=== PATIENT | female | born 1975 | race African-American/Black ===

== ENCOUNTER 2021-06-13 11:45 | Emergency (ER) | payer OTHER ==
[~2021-06-13] VITALS: Ht 165.1 cm; Wt 99.1 kg
[2021-06-13] MEDS ORDERED: LIDOCAINE 2% Multi-Dose 20 ML VIAL. IJ ONE (12:30)
--- NOTE | 2021-06-13 12:59 | PHYS DOC ---
Past Medical History Past Medical History: Hypertension Past Surgical History: No Surgical History Smoking Status: Never Smoker Alcohol Use: None Drug Use: None General Adult EDM: Chief Complaint: LACERATION/AVULSION HPI: HPI: Patient is a 45-year-old female that has a laceration to her left fifth finger. Patient states she was at work and she was cleaning a knife on a tile and the tile slipped and she sliced her left fifth finger. Patient is unsure of when her last tetanus shot was. Review of Systems: Review of Systems: Constitutional: Denies fever or chills. [] Eyes: Denies change in visual acuity. [] HENT: Denies nasal congestion or sore throat. [] Respiratory: Denies cough or shortness of breath. [] Cardiovascular: Denies chest pain or edema. [] GI: Denies abdominal pain, nausea, vomiting, bloody stools or diarrhea. [] : Denies dysuria. [] Musculoskeletal: Denies back pain or joint pain. [] Integument: Laceration to the left fifth finger Neurologic: Denies headache, focal weakness or sensory changes. [] Endocrine: Denies polyuria or polydipsia. [] Lymphatic: Denies swollen glands. [] Psychiatric: Denies depression or anxiety. [] Heart Score: C/O Chest Pain: N/A Risk Factors: Risk Factors: DM, Current or recent (<one month) smoker, HTN, HLP, family history of CAD, obesity. Risk Scores: Score 0 - 3: 2.5% MACE over next 6 weeks - Discharge Home Score 4 - 6: 20.3% MACE over next 6 weeks - Admit for Clinical Observation Score 7 - 10: 72.7% MACE over next 6 weeks - Early Invasive Strategies Current Medications: Current Medications Medications (Trade) Dose Ordered Sig/Rachael Start Time Stop Time Status Last Admin Dose Admin Diphtheria/ Tetanus/Acell Pertussis (Boostrix) 0.5 ml ONCE ONCE 06/13/21 12:30 06/13/21 12:31 UNV Lidocaine HCl (Lidocaine 2% 20ml Vial) 20 ml 1X ONCE 06/13/21 12:30 06/13/21 12:31 UNV Allergies: Allergies: Allergies Coded Allergies Type Severity Reaction Last Updated Verified No Known Drug Allergies 06/13/21 No Physical Exam: PE: Constitutional: Well developed, well nourished, no acute distress, non-toxic appearance. [] HENT: Normocephalic, atraumatic, bilateral external ears normal, oropharynx moist, no oral exudates, nose normal. [] Eyes: PERRLA, EOMI, conjunctiva normal, no discharge. [] Neck: Normal range of motion, no tenderness, supple, no stridor. [] Cardiovascular:Heart rate regular rhythm, no murmur [] Lungs & Thorax: Bilateral breath sounds clear to auscultation [] Abdomen: Bowel sounds normal, soft, no tenderness, no masses, no pulsatile mass es. [] Skin: 1 cm laceration noted to the tip of the left fifth finger, no active be bleeding Back: No tenderness, no CVA tenderness. [] Extremities: Left fifth finger range of motion is within normal limits cap refill less than 2 seconds, neurovascular intact distal to the injury. Neurologic: Alert and oriented X 3, normal motor function, normal sensory function, no focal deficits noted. [] Psychologic: Affect normal, judgement normal, mood normal. [] Current Patient Data: Vital Signs: Vital Signs Date Time Temp Pulse Resp B/P (MAP) Pulse Ox O2 Delivery O2 Flow Rate FiO2 06/13/21 11:45 98.3 84 22 180/94 (122) 100 Room Air 98.3 EKG: EKG: [] Radiology/Procedures: Radiology/Procedures: Indication: Laceration left fifth finger Procedure: Patient was placed in a sitting position, lidocaine 2% without epinephrine was used to anesthetize the wound, wound was cleansed with Betadine solution, wound was irrigated with approximately 100 mL of normal saline, 4 interrupted sutures using 5-0 Ethilon was used to close the wound. Tubegauz dressing was applied by nursing staff as a dressing. Total repaired wound length: 1 cm The patient tolerated the procedure well Course & Med Decision Making: Course & Med Decision Making Pertinent Labs and Imaging studies reviewed. (See chart for details) Sutures were placed to close the wound, patient's tetanus status was updated, patient is instructed to cleanse wound twice daily with mild soap and water, watch her for any signs and symptoms of infection sutures to be removed in 7 to 10 days by either her primary care physician or return here to the emergency department. Lashay Disclaimer: Lashay Disclaimer: This electronic medical record was generated, in whole or in part, using a voice recognition dictation system. Departure Departure Impression: Primary Impression: Laceration of finger of left hand Qualified Codes: S61.217A - Laceration without foreign body of left little finger without damage to nail, initial encounter Disposition: HOME / SELF CARE / HOMELESS Condition: STABLE Referrals: UNKNOWN PCP NAME (PCP) Patient Instructions: Fingertip Laceration Additional Instructions: Keep wound clean and dry if you do have to submerge your finger please wear gloves Cleanse wound twice daily with mild soap and water watching for any signs and symptoms of infection Sutures out in 7 to 10 days follow-up with your primary care physician or return here to the emergency department for suture removal Tylenol and/or ibuprofen as needed for pain Return to the emergency department for any signs and symptoms of infection or follow-up with your Workmen's Comp. agency. LATANYA ISABEL APRN Jun 13, 2021 12:59
[2021-06-13] MEDS ORDERED: DIPHTH,PERTUSS(ACELL),TET TOX 0.5 ML DISP.SYRIN. VAX IM ONE (13:00)
[2021-06-13 14:18] VITALS: BP 149/92
== END 2021-06-13 14:18 | disposition home or self-care (01) ==
LOC: ER 11:45
DX: S61.217A Laceration without foreign body of left little finger without damage to nail, initial encounter (principal); I10 Essential (primary) hypertension; Y28.1XXA Contact with knife, undetermined intent, initial encounter; Y93.89 Activity, other specified; Y99.8 Other external cause status; Y92.89 Other specified places as the place of occurrence of the external cause
CPT/HCPCS: 12001; 90471; 90715; 99284